=== PATIENT | female | born 1995 | race Two or more races ===

== ENCOUNTER 2024-08-04 16:06 | Emergency (ER) | payer BC, SELFPAY ==
[2024-08-04 17:02] VITALS: BP 138/95; PULSE 105; RESP 17; TEMP 37; O2SAT 96; BMI 51.0
--- NOTE | 2024-08-04 17:29 | XR_ITS ---
Examination: CT abdomen and pelvis without contrast. Coronal 3-D reconstructions. Sagittal 2-D reconstructions. Date and time of exam:August 04, 2024 1937 hrs. Indications: Left lower abdominal pain vomiting today CTDI: vol (mGy): 18.1 DLP: (mGycm): 1241 Technique: Axial images of the abdomen have been obtained, 3 mm slice thickness Intravenous contrast material has not been administered. Low dose protocols were performed. One or more of the following dose reduction techniques were used; automated exposure control, adjustment of the mA and/or KV according to patient size, use of iterative reconstruction technique. Findings: Diffuse fatty infiltration throughout the liver No gallstones No splenic pancreatic or adrenal mass Minimal left hydronephrosis secondary to 3 mm left ureteropelvic junction calculus Aorta normal size Normal appendix No bowel obstruction No pelvic mass No bladder mass or bladder calculi Impression: Minimal left hydronephrosis secondary to 3 mm left ureteropelvic junction calculus
--- NOTE | 2024-08-04 17:31 | PD.EDRME ---
Rapid Medical Screening Exam RME Arrival date/time: 08/04/24 16:06 Chief Complaint: Abdominal Pain Time Seen by Provider: 08/04/24 17:02 Vital signs: Vital Signs Temperature 98.6 F 08/04/24 17:02 Pulse Rate 105 H 08/04/24 17:02 Respiratory Rate 17 08/04/24 17:02 Blood Pressure 138/95 H 08/04/24 17:02 Pulse Oximetry (%) 96 08/04/24 17:02 Oxygen Delivery Method Room Air 08/04/24 17:02 Vital signs reviewed by provider: Yes RME Narrative: 29 yo female with past medical history of PCOS presents for evaluation of left lower quadrant pain. She describes it as sharp with radiation to her left flank. She endorses nausea with x 2 episodes of emesis just prior to arrival today. She endorses diffuse bodyaches and chills. Denies diarrhea and constipation. Reports that she is currently menstruating.
[2024-08-04 17:47] LABS: Basophils # (Auto) 0.1 Thou/mm3 (0.0-0.2); Basophils % (Auto) 1 % (0-2.5); Eosinophils # (Auto) 0.1 Thou/mm3 (0.0-0.5); Eosinophils % (Auto) 1 % (0-10); Hematocrit 43.1 % (36.0-46.0); Hemoglobin 14.4 g/dL (12.0-16.0); Immature Granulocytes % (Auto) 1 % (0-0); Immature Granulocytes Auto 0.06 Thou/mm3 (0.00-0.00); Lymphocytes # (Auto) 1.5 Thou/mm3 (1.0-4.8); Lymphocytes % (Auto) 17 % (10-50); Mean Corpuscular HGB Conc 33.4 g/dl (31.0-37.0); Mean Corpuscular Hemoglobin 29.4 pg (25.0-35.0); Mean Corpuscular Volume 88 fL (80-100); Monocytes # (Auto) 0.7 Thou/mm3 (0.0-0.8); Monocytes % (Auto) 8 % (0-12); Neutrophils # (Auto) 6.6 Thou/mm3 (1.8-7.7); Neutrophils % (Auto) 73 % (37-80); Nucleated Red Blood Cell % 0 /100 WBC (0); Platelet Count 352 Thou/mm3 (140-440); RDW Standard Deviation 42.5 fL (36.4-46.3)
[2024-08-04 18:10] LABS: Alanine Aminotransferase 34 U/L (10-49); Albumin, Serum 4.8 gm/dL (3.5-5.0); Albumin/Globulin Ratio 1.5 (1.2-2.2); Alkaline Phosphatase 145 U/L (46-116); Anion Gap 9 (7-16); Aspartate Amino Transferase 32 U/L (0-34); BUN/Creatinine Ratio 12 Ratio (12-20); Bilirubin,Total 0.5 mg/dL (0.3-1.2); Blood Urea Nitrogen 12 mg/dL (9-23); Calcium 9.6 mg/dL (8.3-10.6); Calcium (Corrected) 9.6 mg/dL (8.5-10.1); Carbon Dioxide 23.4 mMol/L (20.0-31.0); Chloride 104 mMol/L (98-107); Estimated Creatinine Clearance 102.7 mL/min (>60); Globulin 3.1 gm/dL (2.3-3.5); Glucose 132 mg/dL (74-106); Lipase 31 U/L (12-53); Osmolality,Calculated 273 (275-295); Sodium 136 mMol/L (136-145); Total Protein 7.9 gm/dL (5.7-8.2); eGFR > 60 See Note
[2024-08-04 18:39] VITALS: BP 122/71; PULSE 105; RESP 18; TEMP 37.1; O2SAT 96
--- NOTE | 2024-08-04 18:39 | PC.NURSE ---
Patient came to the ED for LLQ pain 04/20 with n/v since 1300. Patient denies medical hx or surgeries, POC updated. Medicated per order.
[2024-08-04] MEDS: ONDANSETRON ODT 4 MG TABRAP PO (18:41)
[2024-08-04] MEDS: HYDROcodone/APAP 5/325 TABLET 1 TAB PO (18:41)
[2024-08-04 18:52] LABS: Collection Type, Urine Clean Catch
[2024-08-04 18:59] LABS: Bilirubin,Urine Negative (Negative); Blood,Urine 3+ (Negative); Glucose, Urine Negative (Negative); Ketones,Urine 1+ (Negative); Leukocyte Esterase,Urine Negative (Negative); Nitrite,Urine Negative (Negative); Protein,Urine 1+ (Neg - Trace); RBC,Urine 3265 /hpf (0-3); Specific Gravity,Urine 1.027 (1.001-1.035); Squamous Epithelial Cell,Urine 7 /hpf (0-5); Urobilinogen,Urine Negative mg/dL (0.0-1.0); WBC,Urine 32 /hpf (0-5)
[2024-08-04 19:00] LABS: Clarity,Urine Turbid (Clear/Hazy); Color,Urine Yellow (Lt Yel-Yel); Culture Indicated,Urine Yes
[2024-08-04 19:12] LABS: HCG,Qualitative Serum Negative
[2024-08-04 19:17] LABS: HCG Qualitative,Urine Negative
[2024-08-04 20:28] VITALS: BP 125/60; PULSE 103; RESP 17; TEMP 37.1; O2SAT 96
--- NOTE | 2024-08-04 21:36 | PD.EDABDPN ---
ED Abdominal Pain RME/HPI General Chief Complaint: Abdominal Pain Stated complaint: LEFT SIDE PAIN, VOMITED Time seen by provider: 08/04/24 17:02 Arrival date/time: 08/04/24 16:06 RME / HPI RME / HPI narrative: 29 yo female with past medical history of PCOS presents for evaluation of left lower quadrant pain. She describes it as sharp with radiation to her left flank. She endorses nausea with x 2 episodes of emesis just prior to arrival today. She endorses diffuse bodyaches and chills. Denies diarrhea and constipation. Reports that she is currently menstruating. This section includes all my notes and documentations, including HPI, PE, and ED course. Robert Lauren MD HPI: 29-year-old female here with several hours of severe left flank pain with vomiting. No fever. No urinary symptoms. No other complaints. ROS: Gastrointestinal: negative except as documented in HPI. Genitourinary: negative except as documented in HPI. Musculoskeletal: negative except as documented in HPI. Skin: negative except as documented in HPI. Neurological: negative except as documented in HPI. Physical Exam: General: Alert and oriented. In obvious pain. Eyes: Conjunctivae and lids clear. Lungs: No respiratory distress. Abdomen: Soft and nontender. Normal bowel sounds. No distension. No rebound or guarding. Back: No CVA tenderness. Skin: Warm and dry. Neuro: Alert and oriented X 3. I reviewed all diagnostic test results. My review of the abdominal CT report is 3 mm left ureteral stone. Blood tests and urine tests are unremarkable, except hematuria. At this point, diagnoses include left ureteral stone. Treatment here included Toradol. Recommended a trial of outpatient treatment. Based on my best medical judgment, made decision no further evaluation or treatment indicated at this time. Patient understands and agrees to the discharge instructions customized and printed, see below. Discharge Instructions from Dr. Lauren: --After evaluation, your symptoms are due to a 3 mm kidney stone.? It's in the left ureter tube.?? --Increase oral fluid to flush your kidneys.? Maintain clear urine. if it's dark or yellow then increase oral fluid.? If you don't do this, you won't pass it.? --Take Flomax to help decrease spasms to increase the chance of passing it.? --Take Zofran as needed for nausea or vomiting. --Take Ketorolac/Toradol for pain control.? And Tylenol with Codeine.? If you are in severe pain, you won't pass it.?? --Strain your urine so you can catch the stone when you pass it.? --See a private doctor on 08/06/2024. Take the stone with you for analysis because certain stones can be prevented.? Ask for a referral to see urologist if you didn't pass the stone. This is very important.? They will need to take the stone out for you. --Seek immediate medical care with fever over 100.4, persistent vomiting despite Zofran, intolerable pain, or with any concerns.?? Robert Lauren MD Related Data Previous Rx's ?Medication ?Instructions ?Recorded acetaminophen 300 mg-codeine 30 mg 2 tab PO TID PRN pain #20 tabs 08/04/24 tablet ketorolac 10 mg tablet 10 mg PO Q8H PRN pain 1 day #14 08/04/24 tabs ondansetron 4 mg disintegrating 4 mg PO TID PRN nausea and 08/04/24 tablet vomiting 5 days #10 tabs tamsulosin 0.4 mg capsule (Flomax) 0.4 mg PO QDAY #7 caps 08/04/24 Allergies Allergy/AdvReac Type Severity Reaction Status Date / Time No Known Allergies Allergy Verified 08/04/24 16:06 Course Quality Measures none Orders Category Date Time Status Bedside COVID-19 Antigen Test NOW Care 08/04/24 17:30 Active Bedside Influenza A&B Antigen Test NOW Care 08/04/24 17:31 Completed Miscellaneous Nursing Order NOW Care 08/04/24 21:[address] abdomen pelvis wo con Stat Exams 08/04/24 17:29 Completed CBC Stat Lab 08/04/24 17:35 Completed CMP [Comprehensive Metabolic Panel] Stat Lab 08/04/24 17:35 Completed HCG Qualitative,Urine Stat Lab 08/04/24 18:44 Completed HCG,Qualitative Serum Stat Lab 08/04/24 17:35 Completed Lipase Stat Lab 08/04/24 17:35 Completed Magnesium Stat Lab 08/04/24 17:35 Completed UA, C/S IF [Urinalysis, C/S if Indicated] Stat Lab 08/04/24 18:44 Completed Urine Culture Stat Lab 08/04/24 18:44 Received HYDROcodone*/APAP 5/325 [[place] 5/325] Med 08/04/24 17:29 Discontinued 1 tab PO X1 ONE Ketorolac Inj [Toradol Inj] Med 08/04/24 21:32 Discontinued 60 mg IM X1 ONE Ondansetron Odt [Zofran Odt] Med 08/04/24 17:29 Discontinued 4 mg PO X1 ONE Vital Signs Vital signs: Vital Signs Temperature 98.6 F 08/04/24 17:02 Pulse Rate 105 H 08/04/24 17:02 Respiratory Rate 17 08/04/24 17:02 Blood Pressure 138/95 H 08/04/24 17:02 Pulse Oximetry (%) 96 08/04/24 17:02 Oxygen Delivery Method Room Air 08/04/24 17:02 Abdominal Pain MDM Patient data External records reviewed:: None Clinical information provided by:: patient Social determinants that could affect healthcare access:: none Patient has the following chronic illnesses:: None How is presenting disease/condition affected by chronic disease/condition?: no chronic disease Evaluation data The following diagnostics were reviewed and interpreted by me:: lab results and radiology exam(s) Lab and/or radiology exams considered but not ordered:: None Interpretation Summary: Left kidney stone Medications / Prescriptions Medications or Prescriptions considered but not ordered:: None Medication administrations:: Medication Administration History Discontinued Medications Hydrocodone Bitart/Acetaminophen (Hydrocodone/[place] 5/325 Tablet) 1 tab PO X1 ONE Stop: 08/04/24 17:30 Last Admin: 08/04/24 18:41 Dose: 1 tab Documented By: ER Ketorolac Tromethamine (Ketorolac Inj 60 Mg/2 Ml Vial) 60 mg IM X1 ONE Stop: 08/04/24 21:33 Ondansetron HCl (Ondansetron Odt 4 Mg Tabrap) 4 mg PO X1 ONE; Protocol Stop: 08/04/24 17:30 Last Admin: 08/04/24 18:41 Dose: 4 mg Documented By: ER Zofran and Toradol Consultations Consultation(s) initiated? (list below): No Diagnosis Differential diagnosis abdominal pain: acute appendicitis, calculus of kidney, diverticulitis, gastroenteritis, pancreatitis and small bowel obstruction Most likely diagnosis given after review of the tests above:: Kidney stone Admission Indicated Admission indicated?: not indicated Explain why admission is indicated or not indicated:: No admission criteria Admission Request Was there a request for admission?: No Disposition Plan Disposition Plan: Discharge Discharge Attestation Discharge Attestation: The patient and all family members were given an opportunity to ask questions and understood the discharge instructions. Discharge instructions specifically effects, indications for sooner follow up or return to the emergency department, and the expected course of current diagnosis. Patient condition: Stable Discharge Plan Plan Patient Disposition: HOME (Self Care) Prescriptions/Referrals Prescriptions/Med Rec: New acetaminophen-codeine 300-30 mg tablet 2 tab PO TID MDD 6 PRN (Reason: pain) Qty: 20 0RF ketorolac 10 mg tablet 10 mg PO Q8H PRN (Reason: pain) 1 Days Qty: 14 0RF tamsulosin [Flomax] 0.4 mg capsule 0.4 mg PO QDAY Qty: 7 0RF ondansetron 4 mg tablet,disintegrating 4 mg PO TID PRN (Reason: nausea and vomiting) 5 Days Qty: 10 0RF Referrals: No Primary/Family,Physician [Primary Care Provider] - In 1 week Problem List Clinical Impression: Kidney stone on left side Patient/Caregiver Discharge Instructions Discharge Activity: activity as tolerated Education Materials: ED Kidney Stone w/ Colic Additional Instructions: Discharge Instructions from Dr. Lauren: --After evaluation, your symptoms are due to a 3 mm kidney stone.? It's in the left ureter tube.?? --Increase oral fluid to flush your kidneys.? Maintain clear urine. if it's dark or yellow then increase oral fluid.? If you don't do this, you won't pass it.? --Take Flomax to help decrease spasms to increase the chance of passing it.? --Take Zofran as needed for nausea or vomiting. --Take Ketorolac/Toradol for pain control.? And Tylenol with Codeine.? If you are in severe pain, you won't pass it.?? --Strain your urine so you can catch the stone when you pass it.? --See a private doctor on 08/06/2024. Take the stone with you for analysis because certain stones can be prevented.? Ask for a referral to see urologist if you didn't pass the stone. This is very important.? They will need to take the stone out for you. --Seek immediate medical care with fever over 100.4, persistent vomiting despite Zofran, intolerable pain, or with any concerns.?? Print Language: Eritrean Stand Alone Forms: Bernadette Award Info., Patient Portal Info Letter
[2024-08-04] MEDS: KETOROLAC INJ 60 MG/2 ML VIAL IM (21:43)
== END 2024-08-04 21:47 | disposition home or self-care (01) ==
PROVIDERS: Physician Assistant; Emergency Provider Emergency Medicine
DX: N20.0 Calculus of kidney (principal)
CPT/HCPCS: 36415; 74176; 80053; 81001; 81025; 83690; 83735; 84703; 85025; 87086; 87400; 87811; 96372; 99284; J1885; Q0162; A9270